=== PATIENT | male | born 1940 ===

== ENCOUNTER 2018-01-21 12:16 | Inpatient (IN) | payer OTHER ==
[~2018-01-21] VITALS: Ht 167.6 cm; Wt 78.9 kg
[2018-01-21] MEDS ORDERED: LISINOPRIL10 MG PO (12:32)
[2018-01-21] MEDS ORDERED: GLUCOTROL10 MG PO (12:32)
== END 2018-01-25 13:16 | disposition home or self-care (01) | DRG 390 ==
LOC: ER 12:16 → SEC-K 20:40 → MEDI 20:40
PROC: BW25Y0Z Computerized Tomography (CT Scan) of Chest, Abdomen and Pelvis using Other Contrast, Unenhanced and Enhanced (ICD-10-PCS; 2018-01-21)
PROC: 3E0336Z Introduction of Nutritional Substance into Peripheral Vein, Percutaneous Approach (ICD-10-PCS; principal; 2018-01-22)
DX: K56.690 Other partial intestinal obstruction (principal); I10 Essential (primary) hypertension; E11.9 Type 2 diabetes mellitus without complications; E86.0 Dehydration; K52.89 Other specified noninfective gastroenteritis and colitis

== ENCOUNTER 2018-08-18 16:06 | Inpatient (IN) | payer OTHER ==
[~2018-08-18] VITALS: Ht 167.6 cm; Wt 68.0 kg
[~2018-08-18 16:06] MED LIST: GLUCOTROL10 MG PO; LISINOPRIL10 MG PO
== END 2018-08-20 20:11 | disposition home or self-care (01) | DRG 390 ==
LOC: ER 16:06 → SURG 22:21 → SEC-K 22:21 → MEDJ 08-19 00:07 → SURG 08-19 00:22
PROVIDERS: ADMIT Surgery
PROC: BW21ZZZ Computerized Tomography (CT Scan) of Abdomen and Pelvis (ICD-10-PCS; principal; 2018-08-18)
DX: K56.690 Other partial intestinal obstruction (principal); K80.80 Other cholelithiasis without obstruction; I25.10 Atherosclerotic heart disease of native coronary artery without angina pectoris; I10 Essential (primary) hypertension; E11.9 Type 2 diabetes mellitus without complications; E86.0 Dehydration